=== PATIENT | male | born 1980 | race Two or more races ===

== ENCOUNTER 2019-09-06 07:33 | Emergency (ER) | payer OTHER ==
[2019-09-06 07:41] VITALS: BP 121/70; PULSE 91; TEMP 97.9; BMI 36.1
--- NOTE | 2019-09-06 07:41 | PDOC ---
Rapid Medical Evaluation Chief Complaint: Pain Medical Evaluation: 09/06/19 07:37 39 yo M denies pmhx c/o b/l LE swelling x 3 days. denies pain, f/c, calf pain, sob, cp, dizziness, recent travel or sick contacts. went to an UC yesterday and advised to present to ED. VSS b/l LE erythema, minimal swelling noted ambulatory A/P: b/l LE swelling main ED
[2019-09-06] MEDS ORDERED: CLINDAMYCIN 600MG PREMIX IVPB 600 MG/50 ML BAG IVPB ONE ×2 (08:56→08:59)
--- NOTE | 2019-09-06 09:09 | PDOC ---
History of Present Illness - General Chief Complaint: Pain Stated Complaint: R/O DVT Time Seen by Provider: 09/06/19 08:50 History Source: Patient - History of Present Illness Occurred: reports: other Lower Extremity Pain Location: bilateral: leg Past History - Medical History Allergies/Adverse Reactions: Allergies Allergy/AdvReac Type Severity Reaction Status Date / Time No Known Allergies Allergy Verified 09/06/19 07:39 Home Medications: Ambulatory Orders Clindamycin [Cleocin -] 300 mg PO Q6H #28 capsule 09/06/19 COPD: No - Psycho-Social/Smoking History Smoking History: Current every day smoker Number of Cigarettes Smoked Daily: 20 Information on smoking cessation initiated: Yes - Substance Abuse Hx (Audit-C & DAST Scrn) How often the patient has a drink containing alcohol: Never Score: In Men: 4 or > Positive; In Women: 3 or > Positive: 0 Screen Result (Pos requires Nsg. Audit-10AR): Negative In the last yr the pt used illegal drug/Rx for NonMed reason: No Score: Yes response is considered Positive: 0 Screen Result (Positive result requires Nsg. DAST-10): Negative Review of Systems - Review of Systems Constitutional: No: Chills, Fever, Weakness Integumentary: Yes: Erythema *Physical Exam - Vital Signs Last Vital Signs Temp Pulse Resp BP Pulse Ox 97.9 F 91 H 19 121/70 97 09/06/19 07:36 09/06/19 07:36 09/06/19 07:36 09/06/19 07:36 09/06/19 07:36 - Physical Exam General Appearance: Yes: Appropriately Dressed. No: Apparent Distress HEENT: positive: Normal Voice Neck: positive: Supple Respiratory/Chest: negative: Respiratory Distress Extremity: positive: Swelling (non-pitting edema to b/l foot/legs w/ diffuse erythema/warmth to b/l legs) Integumentary: positive: Dry, Warm Neurologic: positive: Fully Oriented, Alert, Normal Mood/Affect ED Treatment Course - LABORATORY CBC & Chemistry Diagram: 09/06/19 09:30 09/06/19 09:30 - RADIOLOGY Radiology Studies Ordered: Category Date Time Status DUPLEX VASCUL US-2LEGS [US] Stat Ultrasound 09/06/19 08:59 Ordered Medical Decision Making - Medical Decision Making 09/06/19 09:00 39 yo male, denies any pmhx, here w/ b/l LE swelling and redness x several days. No f/c, chest pain, sob or palpitations. Denies trauma but sates he does freq use a razor to scrape away plantar calluses and did same 2 days prior to onset of symptoms. No obvious RF for DVT/PE see exam Concerned for possible b/l LE cellulitis given above hx No systemic s/s Exam remarkable for non-pitting edema to b/l foot extending to proximal leg w/ erythema/warmth diffusely to b/l legs, no sig ttp -dose of IV abx -labs -US though DVT unlikely -will discuss dispo w/ ED attg 09/06/19 11:53 Labs unremarkable and US negative. Dr Schroeder also evaluated pt and agreed w/ admission for IV abx. 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 Medical risks were explained to pt such as worsening infection, sepsis, etc and through shared decision making, pt opted to be discharged on antibiotics, to return for wound check in 2 days. Reasons to return sooner d/w pt Discharge - Discharge Information Problems reviewed: Yes Clinical Impression/Diagnosis: Cellulitis Qualifiers: Site of cellulitis: extremity Site of cellulitis of extremity: lower extremity Laterality: unspecified laterality Qualified Code(s): L03.119 - Cellulitis of unspecified part of limb Condition: Stable Disposition: HOME - Additional Discharge Information Prescriptions: Clindamycin [Cleocin -] 300 mg PO Q6H #28 capsule - Follow up/Referral - Patient Discharge Instructions Patient Printed Discharge Instructions: Cellulitis Additional Instructions: You were treated for infection of both legs We wanted to admit you for multiple doses of IV antibiotics but you declined at this time despite being told of the risks. Through shared decision making, the decision was made to discharge you on antibiotics with very close follow up in ED in 2 days Please return immediately if symptoms worsen prior to that - Post Discharge Activity Work/Back to School Note: Back to Work
[2019-09-06 09:53] LABS: BASO % 0.3 % (0-2.0); EOS % 3.3 % (0-4.5); HEMATOCRIT 36.9 % (35.4-49); HEMOGLOBIN 12.2 GM/dL (11.7-16.9); LYMPH % 30.7 % (8-40); MCH 30.3 pg (25.7-33.7); MCHC 33.2 g/dl (32.0-35.9); MEAN CELL VOLUME 91.5 fl (80-96); MEAN PLT VOLUME 9.6 fl (7.5-11.1); MONO % 11.4 % (3.8-10.2); NEUT % 54.3 % (42.8-82.8); PLATELET COUNT 193 K/MM3 (134-434); RBC 4.03 M/mm3 (4.00-5.60); RDW 13.7 % (11.9-15.9); WHITE BLOOD COUNT 6.6 K/mm3 (4.0-10.0)
[2019-09-06 10:45] LABS: ALBUMIN 3.4 g/dl (3.4-5.0); BILIRUBIN,TOTAL 0.2 mg/dL (0.2-1); POTASSIUM 4.1 mmol/L (3.5-5.1); TOT PROT 6.7 g/dl (6.4-8.2)
--- NOTE | 2019-09-06 11:53 | PDOC ---
*Physical Exam - Vital Signs Last Vital Signs Temp Pulse Resp BP Pulse Ox 97.9 F 91 H 19 121/70 97 09/06/19 07:36 09/06/19 07:36 09/06/19 07:36 09/06/19 07:36 09/06/19 07:36 ED Treatment Course - LABORATORY CBC & Chemistry Diagram: 09/06/19 09:30 09/06/19 09:30 - ADDITIONAL ORDERS Additional order review: Laboratory Results 09/06/19 09:30 Sodium 139 Potassium 4.1 Chloride 102 Carbon Dioxide 31 Anion Gap 5 L BUN 12.0 Creatinine 1.0 Est GFR (CKD-EPI)AfAm 110.94 Est GFR (CKD-EPI)NonAf 95.72 Random Glucose 85 Calcium 9.0 Total Bilirubin 0.2 AST 82 H ALT 122 H Alkaline Phosphatase 76 Total Protein 6.7 Albumin 3.4 09/06/19 09:30 RBC 4.03 MCV 91.5 MCHC 33.2 RDW 13.7 MPV 9.6 Neutrophils % 54.3 Lymphocytes % 30.7 Monocytes % 11.4 H Eosinophils % 3.3 Basophils % 0.3 - Medications Given in the ED: ED Medications Discontinued Medications Generic Name Dose Route Start Last Admin Trade Name Freq PRN Reason Stop Dose Admin Clindamycin Phosphate 600 mg in 50 mls @ 100 mls/hr 09/06/19 08:59 09/06/19 09:16 Cleocin 600 Mg Premix Ivpb - IVPB 09/06/19 09:28 100 mls/hr ONCE ONE Administration ED Progress Note - Progress Note Progress Note: 09/06/19 11:42 Pt. with b/l foot cellulitis with some extension to the proximal lower legs bilaterally after using his callous remover on his b/l feet. No crepitus, ertyhema is mild with mild ttp, no fluctuance or abscess present LEs warm and well perfused Likely cellulitis however will get LE DVT study to r/o. 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 Discussion of r/b/a with patient and shared decision making employed and patient agrees to return in 2 days for wound check (or sooner if condition worsens) so will d/c with PO abx and strict return precautions. Patient to return in 2 days for wound check. Discharge - Discharge Information Problems reviewed: Yes Clinical Impression/Diagnosis: Cellulitis Qualifiers: Site of cellulitis: extremity Site of cellulitis of extremity: lower extremity Laterality: unspecified laterality Qualified Code(s): L03.119 - Cellulitis of unspecified part of limb Condition: Stable Disposition: HOME - Additional Discharge Information Prescriptions: Clindamycin [Cleocin -] 300 mg PO Q6H #28 capsule - Follow up/Referral - Patient Discharge Instructions Patient Printed Discharge Instructions: Cellulitis Additional Instructions: You were treated for infection of both legs We wanted to admit you for multiple doses of IV antibiotics but you declined at this time despite being told of the risks. Through shared decision making, the decision was made to discharge you on antibiotics with very close follow up in ED in 2 days Please return immediately if symptoms worsen prior to that - Post Discharge Activity Work/Back to School Note: Back to Work
== END 2019-09-06 11:50 | disposition home or self-care (01) ==
LOC: JER 07:33
DX: L03.116 Cellulitis of left lower limb (principal); L03.115 Cellulitis of right lower limb
CPT/HCPCS: 36415; 80053; 85025; 93970-TC; 99284-25